=== PATIENT | female | born 1940 | race Caucasian/White ===

== ENCOUNTER 2019-07-13 20:19 | Emergency (ER) | payer MEDICARE, OTHER ==
[2019-07-13] MEDS ORDERED: Sodium Chloride 0.9% 1000 ML 1,000 ML IV STA (21:08)
[2019-07-13] MEDS ORDERED: MORPHINE SULFATE 2 MG INJ IV ONE (21:08)
[2019-07-13] MEDS ORDERED: Zofran 4 MG/2 ML VIAL IV ONE (21:08)
--- NOTE | 2019-07-13 21:40 | ERPHSYRPT ---
- History of Present Illness Time Seen by Provider: 07/13/19 21:15 Historian: patient Exam Limitations: no limitations Patient Subjective Stated Complaint: pt to ER with complaints of abdominal pain x 3 weeks. pt states + nauea. pt with some upper epigastric pain. Triage Nursing Assessment: pt A&Ox4. pt a little [place]-SPARKS. pt ambulatory. pt skin pwd. Physician History: Patient is a 79-year-old female with a history of lymphoma presents to our ED with complaints of abdominal pain. Abdominal pain has been present for approximately 3 weeks. Patient has been mildly constipated however she gave herself an enema today and produced some stool. This provided some relief. No associated trauma. No nausea or vomiting. Symptoms are mild to moderate intensity. No specific worsening or improving factors. Patient voices no other complaints at this time. Timing/Duration: week(s) (3 weeks) Activities at Onset: none Quality: aching Abdominal Pain Onset Location: periumbilical Pain Radiation: no radiation Severity of Pain-Max: moderate Severity of Pain-Current: moderate Modifying Factors: Improves With: nothing Associated Symptoms: denies symptoms Previous symptoms: no prior history Allergies/Adverse Reactions: latex Allergy (Verified 07/13/19 21:10) Home Medications: Omeprazole 20 MG [Prilosec 20 mg] 20 mg PO DAILY 01/18/15 [History] Aspirin [Aspirin EC] 81 mg PO DAILY 03/26/15 [History] Carvedilol 12.5 mg [Coreg 12.5 mg] 25 mg PO BID 03/26/15 [History] Amlodipine Besylate 5 mg [Norvasc 5 mg] 2.5 mg PO DAILY 07/13/19 [History] Pioglitazone 30 mg [Actos 30 MG] 30 mg PO DAILY 07/13/19 [History] Pioglitazone 30 mg [Actos 30 MG] 30 mg PO DAILY 07/13/19 [History] Sacubitril/Valsartan [Entresto 49 mg-51 mg Tablet] 1 tab PO DAILY 07/13/19 [ History] Sertraline HCl [Zoloft] 25 mg PO DAILY 07/13/19 [History] glipiZIDE [Glipizide] 10 mg PO DAILY 07/13/19 [History] Hx Tetanus, Diphtheria Vaccination/Date Given: Yes Hx Influenza Vaccination/Date Given: Yes Hx Pneumococcal Vaccination/Date Given: Yes Immunizations Up to Date: Yes Travel Risk - International Travel Have you traveled outside of the country in past 3 weeks: No Have you or anyone close to you been diagnosed with or: No Do your reside in a community with a known COVID-19 case?: Yes If Yes where:: [place] - Coronavirus Screening Has patient experienced Coronavirus symptoms: No - Review of Systems Constitutional: No Symptoms, No Fever, No Chills Eyes: No Symptoms Ears, Nose, & Throat: No Symptoms Respiratory: No Symptoms, No Cough, No Dyspnea Cardiac: No Symptoms, No Chest Pain, No Edema, No Syncope Abdominal/Gastrointestinal: Abdominal Pain, Constipation, No Nausea, No Vomiting , No Diarrhea Genitourinary Symptoms: No Symptoms, No Dysuria Musculoskeletal: No Symptoms, No Back Pain, No Neck Pain Skin: No Symptoms, No Rash Neurological: No Symptoms, No Dizziness, No Focal Weakness, No Sensory Changes Psychological: No Symptoms Endocrine: No Symptoms Immunological/Allergic: No Symptoms All Other Systems: Reviewed and Negative - Past Medical History Pertinent Past Medical History: Yes Neurological History: No Pertinent History ENT History: No Pertinent History Cardiac History: High Cholesterol, Hypertension Respiratory History: Other Endocrine Medical History: No Pertinent History Musculoskeletal History: Arthritis GI Medical History: GERD, Hernia History: No Pertinent History Psycho-Social History: Anxiety Female Reproductive Disorders: No Pertinent History Other Medical History: hiatal hernia, non hodgkins lymphoma, wears o2 at night. benign hypertensive heart disease. cardiomyopathy. malignant neoplasm lymphoma - Past Surgical History Past Surgical History: Yes Neuro Surgical History: No Pertinent History Cardiac: Cardiac Catheterization Respiratory: No Pertinent History Gastrointestinal: Cholecystectomy Genitourinary: No Pertinent History Musculoskeletal: No Pertinent History Female Surgical History: Tubal Ligation, Other Other Surgical History: breast reduction - Social History Smoking Status: Never smoker Exposure to second hand smoke: No Drug Use: none Patient Lives Alone: No - Nursing Vital Signs Nursing Vital Signs: Initial Vital Signs Temperature 98.3 F 07/13/19 21:01 Pulse Rate 77 07/13/19 21:01 Respiratory Rate 18 07/13/19 21:01 Blood Pressure 178/92 07/13/19 21:01 O2 Sat by Pulse Oximetry 98 07/13/19 21:01 Pain Scale Pain Intensity 3 - Physical Exam General Appearance: no apparent distress, alert Eye Exam: PERRL/EOMI, eyes nml inspection Ears, Nose, Throat Exam: normal ENT inspection, pharynx normal, moist mucous membranes Neck Exam: normal inspection, non-tender, supple, full range of motion Respiratory Exam: normal breath sounds, lungs clear, No respiratory distress Cardiovascular Exam: regular rate/rhythm, normal heart sounds Gastrointestinal/Abdomen Exam: soft, tenderness, distention, No mass, No pulsatile mass, No rebound Back Exam: normal inspection, normal range of motion, No CVA tenderness, No vertebral tenderness Extremity Exam: normal inspection, normal range of motion, pelvis stable Neurologic Exam: alert, oriented x 3, cooperative, normal mood/affect, nml cerebellar function, sensation nml, No motor deficits Skin Exam: normal color, warm, dry SpO2 Interpretation: normal SpO2: 98 O2 Delivery: Room Air - Course Nursing assessment & vital signs reviewed: Yes EKG Interpreted by Me: RATE, Other (EKG reveals a ventricular paced rhythm.) - CT Exams Abdomen/Pelvis CT Interpretation: Tele-radiologist Report (Colonic diverticulosis, pancreatic lesion, pancreatic cyst,) Ordered Tests: Active Orders 24 hr Category Date Time Status IV Insertion STAT Care 07/13/19 21:08 Active ABDOMEN AND PELVIS W CONTRAST [CT] Stat Exams 07/13/19 21:08 Taken CBC W DIFF Stat Lab 07/13/19 20:40 Completed CMP Stat Lab 07/13/19 20:40 Completed LIPASE Stat Lab 07/13/19 20:40 Completed TROPONIN Q3H Lab 07/13/19 20:40 Completed TROPONIN Q3H Lab 07/14/19 01:05 Completed TROPONIN Q3H Lab 07/14/19 03:15 Ordered TROPONIN Q3H Lab 07/14/19 06:15 Ordered TROPONIN Q3H Lab 07/14/19 09:15 Ordered UA W/RFX UR CULTURE Stat Lab 07/13/19 22:30 Completed Medication Summary Discontinued Medications Generic Name Dose Route Start Last Admin Trade Name Freq PRN Reason Stop Dose Admin Al Hydrox/Mg Hydrox/Simethicone Confirm 07/14/19 01:57 Maalox Es 30 Ml Unit Dose Administered 07/14/19 01:58 Dose 30 ml .ROUTE .STK-MED ONE Sodium Chloride 1,000 mls @ 999 mls/hr 07/13/19 21:08 07/13/19 21:50 Sodium Chloride 0.9% 1000 Ml IV 07/13/19 22:08 999 mls/hr .Q1H1M STA Administration Sodium Chloride Confirm 07/13/19 21:47 Sodium Chloride 0.9% 1000 Ml Administered 07/13/19 21:48 Dose 1,000 mls @ ud .ROUTE .STK-MED ONE Lidocaine HCl Confirm 07/14/19 01:57 Xylocaine Hcl Viscous * Administered 07/14/19 01:58 Dose 15 ml .ROUTE .STK-MED ONE Magnesium Hydroxide 45 ml 07/14/19 01:49 07/14/19 01:59 Gi Cocktail 45 Ml (Maalox/Lidocaine) PO 07/14/19 01:50 45 ml STAT ONE Administration Morphine Sulfate 2 mg 07/13/19 21:08 07/13/19 21:50 Morphine Sulfate 2 Mg Inj IV 07/13/19 21:09 2 mg STAT ONE Administration Morphine Sulfate Confirm 07/13/19 21:47 Morphine Sulfate 2 Mg Inj Administered 07/13/19 21:48 Dose 2 mg .ROUTE .STK-MED ONE Ondansetron HCl 4 mg 07/13/19 21:08 07/13/19 21:50 Zofran 4 Mg/2 Ml Vial IV 07/13/19 21:09 4 mg STAT ONE Administration Ondansetron HCl Confirm 07/13/19 21:47 Zofran 4 Mg/2 Ml Vial Administered 07/13/19 21:48 Dose 4 mg .ROUTE .STK-MED ONE Lab/Rad Data: Laboratory Result Diagrams 07/13/19 20:40 07/13/19 20:40 Laboratory Results 07/14/19 07/13/19 07/13/19 Range/Units 01:05 22:30 20:40 WBC (4.0-10.5) K/mm3 RBC (4.1-5.4) M/mm3 Hgb (12.0-16.0) gm/dl Hct (35-47) % MCV (78-100) fl MCH (26-32) pg MCHC (32-36) g/dl RDW (11.5-14.0) % Plt Count (150-450) K/mm3 MPV (7.5-11.0) fl Gran % (36.0-66.0) % Eos # (Auto) (0-0.5) Absolute Lymphs (auto) (1.0-4.6) Absolute Monos (auto) (0.0-1.3) Lymphocytes % (24.0-44.0) % Monocytes % (0.0-12.0) % Eosinophils % (0.00-5.0) % Basophils % (0.0-0.4) % Absolute Granulocytes (1.4-6.9) Basophils # (0-0.4) Sodium (137-145) mmol/L Potassium (3.5-5.1) mmol/L Chloride (98-107) mmol/L Carbon Dioxide (22-30) mmol/L Anion Gap (5-15) MEQ/L BUN (7-17) mg/dL Creatinine (0.52-1.04) mg/dL Estimated GFR ML/MIN Glucose (74-106) mg/dL Calcium (8.4-10.2) mg/dL Total Bilirubin (0.2-1.3) mg/dL AST (14-36) U/L ALT (0-35) U/L Alkaline Phosphatase (38-126) U/L Troponin I < 0.012 < 0.012 (0.000-0.034) ng/mL Serum Total Protein (6.3-8.2) g/dL Albumin (3.5-5.0) g/dL Lipase (23-300) U/L Urine Color STRAW (YELLOW) Urine Appearance CLEAR (CLEAR) Urine pH 6.0 (5-6) Ur Specific [place] 1.008 (1.005-1.025) Urine Protein NEGATIVE (Negative) Urine Ketones NEGATIVE (NEGATIVE) Urine Blood NEGATIVE (0-5) Johnathan/ul Urine Nitrite NEGATIVE (NEGATIVE) Urine Bilirubin NEGATIVE (NEGATIVE) Urine Urobilinogen NEGATIVE (0-1) mg/dL Ur Leukocyte Esterase NEGATIVE (NEGATIVE) Urine WBC (Auto) 3-5 (0-5) /HPF U Epithel Cells (Auto) RARE (FEW) /HPF Urine Bacteria (Auto) RARE (NEGATIVE) /HPF Urine Culture Reflexed NO (NO) Urine Glucose NEGATIVE (NEGATIVE) mg/dL 07/13/19 07/13/19 Range/Units 20:40 20:40 WBC 3.9 L (4.0-10.5) K/mm3 RBC 3.41 L (4.1-5.4) M/mm3 Hgb 10.0 L (12.0-16.0) gm/dl Hct 30.4 L (35-47) % MCV 89.1 (78-100) fl MCH 29.3 (26-32) pg MCHC 32.9 (32-36) g/dl RDW 13.9 (11.5-14.0) % Plt Count 80 L (150-450) K/mm3 MPV 10.3 (7.5-11.0) fl Gran % 65.2 (36.0-66.0) % Eos # (Auto) 0.06 (0-0.5) Absolute Lymphs (auto) 0.87 L (1.0-4.6) Absolute Monos (auto) 0.40 (0.0-1.3) Lymphocytes % 22.5 L (24.0-44.0) % Monocytes % 10.4 (0.0-12.0) % Eosinophils % 1.6 (0.00-5.0) % Basophils % 0.3 (0.0-0.4) % Absolute Granulocytes 2.52 (1.4-6.9) Basophils # 0.01 (0-0.4) Sodium 137 (137-145) mmol/L Potassium 4.0 (3.5-5.1) mmol/L Chloride 102 (98-107) mmol/L Carbon Dioxide 26 (22-30) mmol/L Anion Gap 12.7 (5-15) MEQ/L BUN 24 H (7-17) mg/dL Creatinine 1.24 H (0.52-1.04) mg/dL Estimated GFR 44.2 ML/MIN Glucose 110 H (74-106) mg/dL Calcium 9.8 (8.4-10.2) mg/dL Total Bilirubin 0.50 (0.2-1.3) mg/dL AST 25 (14-36) U/L ALT 17 (0-35) U/L Alkaline Phosphatase 52 (38-126) U/L Troponin I (0.000-0.034) ng/mL Serum Total Protein 7.1 (6.3-8.2) g/dL Albumin 4.2 (3.5-5.0) g/dL Lipase 108 (23-300) U/L Urine Color (YELLOW) Urine Appearance (CLEAR) Urine pH (5-6) Ur Specific [place] (1.005-1.025) Urine Protein (Negative) Urine Ketones (NEGATIVE) Urine Blood (0-5) Johnathan/ul Urine Nitrite (NEGATIVE) Urine Bilirubin (NEGATIVE) Urine Urobilinogen (0-1) mg/dL Ur Leukocyte Esterase (NEGATIVE) Urine WBC (Auto) (0-5) /HPF U Epithel Cells (Auto) (FEW) /HPF Urine Bacteria (Auto) (NEGATIVE) /HPF Urine Culture Reflexed (NO) Urine Glucose (NEGATIVE) mg/dL - Progress Progress: improved Progress Note: 07/14/19 01:15 Patient reassessed. No active abdominal pain. Case discussed with patient's oncologist Dr. Vaz who has no objections to patient's discharge. Patient tolerated p.o. CT abdomen pelvis negative for acute pathology. 07/14/19 04:21 Plan of care discussed with patient. She agrees to transfer for further evaluation and treatment. Discussed with Dr. Polo who accepts transfer. Case discussed with Dr. Bustillos who accepts consultation for GI. Discussed with Dr.: Taty (We will transfer patient to facility with gastroenterology.) Counseled pt/family regarding: lab results, diagnosis, rad results - Departure Departure Disposition: Home, Transfer Clinical Impression: Pancreatic lesion, Pancreatic cyst, Diverticulosis, Uterine fibroid, Anterolisthesis, Lesion of vertebra, Leukopenia, Thrombocytopenia Condition: Stable Critical Care Time: No Referrals: WON ABBASI [Primary Care Provider] - Additional Instructions: Discharge/Care Plan ARLENE SANTOS was seen on 07/14/19 in the Emergency Room. The patient was counseled regarding Diagnosis,Lab results, Imaging studies, need for follow up and when to return to the Emergency Room. Prescriptions given: Discharge Note I have spoken with the patient and/or caregivers. I have explained the patient' s condition, diagnosis and treatment plan based on the information available to me at this time. I have answered the patient's and/or caregiver's questions and addressed any concerns. The patient and/or caregivers have as good understanding of the patient's diagnosis, condition and treatment plan as can be expected at this point. The vital signs have been stable. The patient's condition is stable and appropriate for discharge from the emergency department. The patient will pursue further outpatient evaluation with the primary care physician or other designated or consulting physician as outlined in the discharge instructions. The patient and/or caregivers are agreeable to this plan of care and follow-up instructions have been explained in detail. The patient and/or caregivers have received these instruction. The patient/and or caregivers are aware that any significant change in condition or worsening of symptoms should prompt an immediate return to this or the closest emergency department or call 911.
[2019-07-13 21:46] LABS: Absolute Neutrophil Ct (ANC) 2.52 (1.4-6.9); BASOPHIL % 0.3 % (0.0-0.4); Basophil (Absolute #) 0.01 (0-0.4); Eosinophil % 1.6 % (0.00-5.0); Eosinophil (Absolute #) 0.06 (0-0.5); Hematocrit 30.4 % (35-47); Lymphocyte (Absolute #) 0.87 (1.0-4.6); Lymphocytes % 22.5 % (24.0-44.0); Mean Cell Volume 89.1 fl (78-100); Mean Corpuscular Hemoglobin 29.3 pg (26-32); Mean Corpuscular Hgb Concent. 32.9 g/dl (32-36); Mean Platelet Volume 10.3 fl (7.5-11.0); Monocytes % 10.4 % (0.0-12.0); Neutrophil % 65.2 % (36.0-66.0); Platelet Count 80 K/mm3 (150-450); Red Blood Count 3.41 M/mm3 (4.1-5.4); Red Cell Distribution Width 13.9 % (11.5-14.0); White Blood Count 3.9 K/mm3 (4.0-10.5)
[2019-07-13] MEDS ORDERED: Sodium Chloride 0.9% 1000 ML 1,000 ML ONE (21:47)
[2019-07-13] MEDS ORDERED: MORPHINE SULFATE 2 MG INJ ONE (21:47)
[2019-07-13] MEDS ORDERED: Zofran 4 MG/2 ML VIAL ONE (21:47)
[2019-07-13 22:02] LABS: ALBUMIN 4.2 g/dL (3.5-5.0); ANION GAP 12.7 MEQ/L (5-15); BILIRUBIN,TOTAL 0.5 mg/dL (0.2-1.3); Calcium 9.8 mg/dL (8.4-10.2); Creatinine 1 1.24 mg/dL (0.52-1.04); Total Protein 7.1 g/dL (6.3-8.2)
[2019-07-13 22:59] LABS: Appearance CLEAR (CLEAR); Bacteria RARE /HPF (NEGATIVE); Bilirubin NEGATIVE (NEGATIVE); Blood NEGATIVE Ery/ul (0-5); Epithelial Cells RARE /HPF (FEW); Glucose NEGATIVE (NEGATIVE); Ketones NEGATIVE (NEGATIVE); Leukocyte Esterase NEGATIVE (NEGATIVE); Nitrite NEGATIVE (NEGATIVE); Protein,Urine Dip NEGATIVE (Negative); Specific Gravity 1.008 (1.005-1.025); Urobilinogen NEGATIVE mg/dL (0-1)
[2019-07-14] MEDS ORDERED: GI COCKTAIL 45 ML (Maalox/Lidocaine) PO ONE (01:49)
[2019-07-14] MEDS ORDERED: XYLOCAINE HCl Viscous ONE (01:57)
[2019-07-14] MEDS ORDERED: MAALOX ES 30 ML UNIT DOSE ONE (01:57)
[2019-07-14 04:04] VITALS: BP 190/96; PULSE 80
[2019-07-14 04:21] VITALS: O2SAT 98
[2019-07-14 04:45] LABS: Slide Review 1 YES
--- NOTE | 2019-07-14 09:24 | XRAY ---
Indication: Epigastric and periumbilical pain 3 weeks. Nausea. Multiple contiguous axial images obtained through the abdomen and pelvis without contrast as ordered. Comparison: Noncontrast exam December 08, 2018. Lung bases remain clear. Heart is not enlarged. Noncontrasted stomach and bowel loops remain nonobstructed. Normal appendix. There is now mild diffuse scattered colonic fecal debris. Stable sigmoid diverticulosis without diverticulitis and cholecystectomy. Body and tail of the pancreas again demonstrates ductal prominence as seen on CT abdomen/pelvis with contrast on May 08, 2018 exam. No free fluid/air. Spleen is now enlarged measuring 13.5 cm in greatest dimension with left upper quadrant splenic varices. Remaining liver, pancreas, spleen, adrenal glands, kidneys, ureters, bladder, and uterus appear unremarkable for noncontrast exam. Stable mild aortoiliac calcifications without AAA. Osseous structures again demonstrates osteopenia, mild lumbar degenerative spondylosis, and minimal grade 1 L4 spondylolisthesis. No ventral or inguinal hernias. Impression: 1. New mild fecal stasis without obstruction. Stable sigmoid diverticulosis. 2. New splenomegaly with stable splenic varices. 3. Stable pancreatic duct prominence of uncertain etiology. Pancreatic mass not completely excluded. CT abdomen or MRI with contrast exam may yield further information. 3. Stable osteopenia, degenerative spondylosis, and grade 1 L4 spondylolisthesis. Comment: Preliminary interpretation was made by [facility]. No critical discrepancy.
== END 2019-07-14 04:57 | disposition short-term general hospital (02) ==
LOC: ED 20:19
DX: K86.2 Cyst of pancreas (principal); K57.90 Diverticulosis of intestine, part unspecified, without perforation or abscess without bleeding; D25.9 Leiomyoma of uterus, unspecified; M26.220 Open anterior occlusal relationship; M43.16 Spondylolisthesis, lumbar region; S34.119A Complete lesion of unspecified level of lumbar spinal cord, initial encounter; D72.819 Decreased white blood cell count, unspecified; D69.6 Thrombocytopenia, unspecified; Z79.899 Other long term (current) drug therapy; I10 Essential (primary) hypertension; E78.00 Pure hypercholesterolemia, unspecified; K21.9 Gastro-esophageal reflux disease without esophagitis; F41.9 Anxiety disorder, unspecified; Z85.72 Personal history of non-Hodgkin lymphomas
CPT/HCPCS: 36000; 36415; 74177; 80053; 81001; 83690; 84484; 85025; 93005; 96374; 96375; 99285; J2270; J2405; A9270-GY

== ENCOUNTER 2020-07-27 19:47 | Emergency (ER) | payer MEDICARE, OTHER ==
[2020-07-27 20:01] LABS: INR 1.04 (0.8-3.0); PROTIME 11.8 SECONDS (9.95-12.35)
[2020-07-27 20:05] LABS: ANION GAP 14.6 MEQ/L (5-15); BILIRUBIN,TOTAL 0.4 mg/dL (0.2-1.3); Calcium 8.7 mg/dL (8.4-10.2); Creatinine 1 1.13 mg/dL (0.52-1.04); EST GLOMERULAR FILTRATION RATE 49.1 ML/MIN; Potassium 3.7 mmol/L (3.5-5.1); Total Protein 6.3 g/dL (6.3-8.2)
[2020-07-27] MEDS ORDERED: TRANDATE 20 MG/4 ML SYRINGE IV ONE ×4 (20:07→20:43)
[2020-07-27 20:10] LABS: Absolute Neutrophil Ct (ANC) 3.76 (1.4-6.9); BASOPHIL % 0.2 % (0.0-0.4); Basophil (Absolute #) 0.01 (0-0.4); Eosinophil % 1.1 % (0.00-5.0); Eosinophil (Absolute #) 0.05 (0-0.5); Hematocrit 22.7 % (35-47); Hemoglobin 7.8 gm/dl (12.0-16.0); Mean Cell Volume 90.1 fl (78-100); Mean Corpuscular Hgb Concent. 34.4 g/dl (32-36); Mean Platelet Volume 11.3 fl (7.5-11.0); Monocytes % 4.5 % (0.0-12.0); Neutrophil % 85.2 % (36.0-66.0); Platelet Count 36 K/mm3 (150-450); Red Blood Count 2.52 M/mm3 (4.1-5.4); Red Cell Distribution Width 14.9 % (11.5-14.0); White Blood Count 4.4 K/mm3 (4.0-10.5)
[2020-07-27] MEDS ORDERED: Zofran 4 MG/2 ML VIAL IV ONE (20:22)
[2020-07-27] MEDS ORDERED: Zofran 4 MG/2 ML VIAL ONE (20:24)
[2020-07-27 20:28] VITALS: O2SAT 99
[2020-07-27 20:43] VITALS: BP 200/103; PULSE 70
[2020-07-27 21:15] LABS: Appearance CLEAR (CLEAR); Bilirubin NEGATIVE (NEGATIVE); Blood SMALL Ery/ul (0-5); Glucose >=500 mg/dL (NEGATIVE); Ketones NEGATIVE (NEGATIVE); Leukocyte Esterase SMALL (NEGATIVE); Nitrite NEGATIVE (NEGATIVE); Protein,Urine Dip 30 (Negative); RBC 0-2 /HPF (0-2); Specific Gravity 1.008 (1.005-1.025); Urobilinogen NEGATIVE mg/dL (0-1)
--- NOTE | 2020-07-27 21:58 | ERPHSYRPT ---
- History of Present Illness Source: family Exam Limitations: clinical condition Patient Subjective Stated Complaint: per pt's family, she fell from standing and hit the right side of her head. family was taking her to [facility] when she became unresponsive. Triage Nursing Assessment: pt responsive to voice. does not answer approp. p-t diaphoretice, skin warm. respirations nonlabored, o2 at 3l as per home. bruising noted around eyes, family states from fall last saturday. hematoma to rt temporal area. Physician History: 80 yo wf w h/o metastatic pancreatic ca presents w altered LOC after falling and hitting head on a door. Pt also has a h/o head injury due to a fall 1 week ago. Pt arrived minimally alert but with good airway and able to follow simple commands. Pt with good sats and hypertensive. She was rushed to CT where large L subdural hematoma was seen on CT scan. Discussed Ct results w family and DNR status was obtained. Family does wish neurosurgical intervention if it would help her. Spoke w Dr. Bonilla(Neurosurgeon) at [facility] in conjunction w Dr. Quach(trauma) who accepted pt. Pt also accepted by ER physician. Timing/Duration: today Severity: severe Baseline/Normal Cognition: poor alertness Current Cognition: poor alertness Associated Symptoms: confusion, nausea Allergies/Adverse Reactions: latex Allergy (Verified 07/27/20 20:31) Home Medications: Omeprazole 20 MG [Prilosec 20 mg] 20 mg PO DAILY 01/18/15 [History] Aspirin [Aspirin EC] 81 mg PO DAILY 03/26/15 [History] Carvedilol 12.5 mg [Coreg 12.5 mg] 25 mg PO BID 03/26/15 [History] Amlodipine Besylate 5 mg [Norvasc 5 mg] 2.5 mg PO DAILY 07/13/19 [History] Pioglitazone 30 mg [Actos 30 MG] 30 mg PO DAILY 07/13/19 [History] Pioglitazone 30 mg [Actos 30 MG] 30 mg PO DAILY 07/13/19 [History] Sacubitril/Valsartan [Entresto 49 mg-51 mg Tablet] 1 tab PO DAILY 07/13/19 [History] Sertraline HCl [Zoloft] 25 mg PO DAILY 07/13/19 [History] glipiZIDE [Glipizide] 10 mg PO DAILY 07/13/19 [History] Hx Tetanus, Diphtheria Vaccination/Date Given: Yes Hx Influenza Vaccination/Date Given: Yes Hx Pneumococcal Vaccination/Date Given: Yes Immunizations Up to Date: Yes Travel Risk - International Travel Have you traveled outside of the country in past 3 weeks: No - Coronavirus Screening Are you exhibiting any of the following symptoms?: No Close contact with a COVID-19 positive Pt in past 14-21 Days: No - Vaccine Status Have you recieved a Covid-19 vaccination: Yes 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 - Vaccination Dates Date of 2cond Vaccination (if applicable): july 2020 - Review of Systems All Other Systems: Unable due to condition - Past Medical History Pertinent Past Medical History: Yes Neurological History: No Pertinent History ENT History: No Pertinent History Cardiac History: High Cholesterol, Hypertension Respiratory History: Other Endocrine Medical History: No Pertinent History Musculoskeletal History: Arthritis GI Medical History: GERD, Hernia History: No Pertinent History Psycho-Social History: Anxiety Female Reproductive Disorders: No Pertinent History Other Medical History: hiatal hernia, non hodgkins lymphoma, wears o2 at night. benign hypertensive heart disease. cardiomyopathy. malignant neoplasm lymphoma. stage 4 pancreatic ca- currently recieving treatments - Past Surgical History Past Surgical History: Yes Neuro Surgical History: No Pertinent History Cardiac: Cardiac Catheterization Respiratory: No Pertinent History Gastrointestinal: Cholecystectomy Genitourinary: No Pertinent History Musculoskeletal: No Pertinent History Female Surgical History: Tubal Ligation, Other Other Surgical History: breast reduction, port placement - Social History Smoking Status: Former smoker Exposure to second hand smoke: No Drug Use: none Patient Lives Alone: No Significant Family History: no pertinent family hx - Nursing Vital Signs Nursing Vital Signs: Initial Vital Signs Pulse Rate 82 07/27/20 20:04 Respiratory Rate 16 07/27/20 20:04 Blood Pressure 197/107 07/27/20 20:04 O2 Sat by Pulse Oximetry 99 07/27/20 20:04 Pain Scale Pain Intensity 8 - Vasyl Coma Scale Best Eye Response ([place]): (3) open to voice Best Verbal Response (Vasyl): (4) confused conversation Best Motor Response ([place]): (5) localizes to pain [place] Total: 12 - Physical Exam General Appearance: lethargy Eye Exam: bilateral eye: normal inspection, PERRL, EOMI Ears, Nose, Throat Exam: normal ENT inspection, TMs normal, pharynx normal, moist mucous membranes Neck Exam: normal inspection, non-tender, supple, No meningismus, No mass, No Brudzinski, No Kernig's Respiratory: lungs clear, airway intact, No respiratory distress Cardiovascular: regular rate/rhythm, normal heart sounds, normal peripheral pulses, No murmur Gastrointestinal: soft, normal bowel sounds, No tenderness Back Exam: normal inspection Extremity Exam: normal inspection, pelvis stable Mental Status: lethargy, 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 Exam: PERRL, No facial droop, No facial paresthesias, No facial weakness Motor/Sensory: no motor deficit DTR: bicep (R): 2+, bicep (L): 2+ Skin Exam: warm, dry SpO2 Interpretation: normal SpO2: 99 O2 Delivery: Oxymizer - Course Nursing assessment & vital signs reviewed: Yes - CT Exams Head CT Interpretation: Discussed w/radiologist (Large L acute to subacute subdural hematome w 1.2cm midline shift) Ordered Tests: Active Orders 24 hr Category Date Time Status EKG-ER Only STAT Care 07/27/20 19:52 Completed IV Insertion STAT Care 07/27/20 20:09 Completed IV Insertion-2nd Peripheral STAT Care 07/27/20 20:41 Completed NPO (ED) STAT Care 07/27/20 19:50 Completed HEAD WITHOUT CONTRAST [CT] Stat Exams 07/27/20 19:48 Taken CBC W DIFF Stat Lab 07/27/20 19:50 Completed CMP Stat Lab 07/27/20 19:50 Completed CULTURE,URINE Stat Lab 07/27/20 20:30 Received Lactic Acid Stat Lab 07/27/20 19:50 Completed PROTIME WITH INR Stat Lab 07/27/20 19:50 Completed PTT Stat Lab 07/27/20 19:50 Completed TROPONIN Q3H Lab 07/27/20 19:50 Completed UA W/RFX UR CULTURE Stat Lab 07/27/20 20:04 Completed Medication Summary Discontinued Medications Generic Name Dose Route Start Last Admin Trade Name Freq PRN Reason Stop Dose Admin Labetalol HCl 10 mg 07/27/20 20:07 07/27/20 20:26 Trandate 20 Mg/4 Ml Syringe IV 07/27/20 20:08 10 mg STAT ONE Administration Labetalol HCl Confirm 07/27/20 20:24 Trandate 20 Mg/4 Ml Syringe Administered 07/27/20 20:25 Dose 20 mg IV .STK-MED ONE Labetalol HCl 20 mg 07/27/20 20:43 07/27/20 20:44 Trandate 20 Mg/4 Ml Syringe IV 07/27/20 20:44 20 mg STAT ONE Administration Labetalol HCl Confirm 07/27/20 20:43 Trandate 20 Mg/4 Ml Syringe Administered 07/27/20 20:44 Dose 20 mg IV .STK-MED ONE Ondansetron HCl 4 mg 07/27/20 20:22 07/27/20 20:26 Zofran 4 Mg/2 Ml Vial IV 07/27/20 20:23 4 mg STAT ONE Administration Ondansetron HCl Confirm 07/27/20 20:24 Zofran 4 Mg/2 Ml Vial Administered 07/27/20 20:25 Dose 4 mg .ROUTE .STK-MED ONE Lab/Rad Data: Laboratory Result Diagrams 07/27/20 19:50 07/27/20 19:50 Laboratory Results 07/27/20 07/27/20 07/27/20 Range/Units 20:04 19:50 19:50 WBC (4.0-10.5) K/mm3 RBC (4.1-5.4) M/mm3 Hgb (12.0-16.0) gm/dl Hct (35-47) % MCV (78-100) fl MCH (26-32) pg MCHC (32-36) g/dl RDW (11.5-14.0) % Plt Count (150-450) K/mm3 MPV (7.5-11.0) fl Gran % (36.0-66.0) % Eos # (Auto) (0-0.5) Absolute Lymphs (auto) (1.0-4.6) Absolute Monos (auto) (0.0-1.3) Lymphocytes % (24.0-44.0) % Monocytes % (0.0-12.0) % Eosinophils % (0.00-5.0) % Basophils % (0.0-0.4) % Absolute Granulocytes (1.4-6.9) Basophils # (0-0.4) PT 11.8 (9.95-12.35) SECONDS INR 1.04 (0.8-3.0) APTT 24.0 L (25.3-37.0) SECONDS Sodium (137-145) mmol/L Potassium (3.5-5.1) mmol/L Chloride (98-107) mmol/L Carbon Dioxide (22-30) mmol/L Anion Gap (5-15) MEQ/L BUN (7-17) mg/dL Creatinine (0.52-1.04) mg/dL Estimated GFR ML/MIN Glucose (74-106) mg/dL Lactic Acid (0.4-2.0) Calcium (8.4-10.2) mg/dL Total Bilirubin (0.2-1.3) mg/dL AST (14-36) U/L ALT (0-35) U/L Alkaline Phosphatase (38-126) U/L Troponin I < 0.012 (0.000-0.034) ng/mL Serum Total Protein (6.3-8.2) g/dL Albumin (3.5-5.0) g/dL Urine Color STRAW (YELLOW) Urine Appearance CLEAR (CLEAR) Urine pH 7.0 (5-6) Ur Specific [place] 1.008 (1.005-1.025) Urine Protein 30 (Negative) Urine Ketones NEGATIVE (NEGATIVE) Urine Blood SMALL (0-5) Johnathan/ul Urine Nitrite NEGATIVE (NEGATIVE) Urine Bilirubin NEGATIVE (NEGATIVE) Urine Urobilinogen NEGATIVE (0-1) mg/dL Ur Leukocyte Esterase SMALL (NEGATIVE) Urine WBC (Auto) 6-10 (0-5) /HPF Urine RBC (Auto) 0-2 (0-2) /HPF U Epithel Cells (Auto) NONE (FEW) /HPF Urine Bacteria (Auto) NONE (NEGATIVE) /HPF Urine Culture Reflexed ORDERED SEPARATELY (NO) Urine Glucose >=500 (NEGATIVE) mg/dL 07/27/20 07/27/20 07/27/20 Range/Units 19:50 19:50 19:50 WBC 4.4 (4.0-10.5) K/mm3 RBC 2.52 L (4.1-5.4) M/mm3 Hgb 7.8 L (12.0-16.0) gm/dl Hct 22.7 L (35-47) % MCV 90.1 (78-100) fl MCH 31.0 (26-32) pg MCHC 34.4 (32-36) g/dl RDW 14.9 H (11.5-14.0) % Plt Count 36 L (150-450) K/mm3 MPV 11.3 H (7.5-11.0) fl Gran % 85.2 H (36.0-66.0) % Eos # (Auto) 0.05 (0-0.5) Absolute Lymphs (auto) 0.40 L (1.0-4.6) Absolute Monos (auto) 0.20 (0.0-1.3) Lymphocytes % 9.0 L (24.0-44.0) % Monocytes % 4.5 (0.0-12.0) % Eosinophils % 1.1 (0.00-5.0) % Basophils % 0.2 (0.0-0.4) % Absolute Granulocytes 3.76 (1.4-6.9) Basophils # 0.01 (0-0.4) PT (9.95-12.35) SECONDS INR (0.8-3.0) APTT (25.3-37.0) SECONDS Sodium 133 L (137-145) mmol/L Potassium 3.7 (3.5-5.1) mmol/L Chloride 101 (98-107) mmol/L Carbon Dioxide 21 L (22-30) mmol/L Anion Gap 14.6 (5-15) MEQ/L BUN 21 H (7-17) mg/dL Creatinine 1.13 H (0.52-1.04) mg/dL Estimated GFR 49.1 ML/MIN Glucose 253 H (74-106) mg/dL Lactic Acid 1.3 (0.4-2.0) Calcium 8.7 (8.4-10.2) mg/dL Total Bilirubin 0.40 (0.2-1.3) mg/dL AST 34 (14-36) U/L ALT 21 (0-35) U/L Alkaline Phosphatase 87 (38-126) U/L Troponin I (0.000-0.034) ng/mL Serum Total Protein 6.3 (6.3-8.2) g/dL Albumin 4.0 (3.5-5.0) g/dL Urine Color (YELLOW) Urine Appearance (CLEAR) Urine pH (5-6) Ur Specific [place] (1.005-1.025) Urine Protein (Negative) Urine Ketones (NEGATIVE) Urine Blood (0-5) Johnathan/ul Urine Nitrite (NEGATIVE) Urine Bilirubin (NEGATIVE) Urine Urobilinogen (0-1) mg/dL Ur Leukocyte Esterase (NEGATIVE) Urine WBC (Auto) (0-5) /HPF Urine RBC (Auto) (0-2) /HPF U Epithel Cells (Auto) (FEW) /HPF Urine Bacteria (Auto) (NEGATIVE) /HPF Urine Culture Reflexed (NO) Urine Glucose (NEGATIVE) mg/dL - Progress Progress Note: 07/28/20 00:49 Pt in critical but stable condition when EMS assumed care. DNR order obtained per /family. Family OK w neurosurgical intervention to drain subdural. Counseled pt/family regarding: diagnosis, rad results - Departure Departure Disposition: Transfer Clinical Impression: Subdural hematoma Condition: Critical Critical Care Time: Yes Critical Care Time(excluding separately billable procedures): Critical 30-74 mins Referrals: WON ABBASI [Primary Care Provider] -
--- NOTE | 2020-07-28 09:02 | XRAY ---
Indication: Temporal head injury/swelling following fall. Multiple contiguous axial images obtained through the head without contrast. Comparison: May 08, 2018. New large acute to subacute appearing left temporoparietal subdural hematoma extending along the entire convexity and up to 1.5 cm in thickness. There is also mass effect with 1.2 cm midline shifting. Fourth ventricle is midline without hydrocephalus. Small high right parietal scalp hematoma. Bony calvarium intact. Visualized paranasal sinuses and mastoid air cells are clear. Impression: New large left temporoparietal acute to subacute subdural hematoma with mass effect/midline shifting. Small right parietal scalp hematoma. Comment: Immediate telephone report was given to ordering clinician, Dr. White at 2005 hrs. on July 27, 2020.
== END 2020-07-27 20:48 | disposition short-term general hospital (02) ==
LOC: ED 19:47
DX: S00.83XA Contusion of other part of head, initial encounter (principal); W18.39XA Other fall on same level, initial encounter; Y93.89 Activity, other specified; Y92.89 Other specified places as the place of occurrence of the external cause; R55 Syncope and collapse; R29.6 Repeated falls; Z79.899 Other long term (current) drug therapy; Z85.72 Personal history of non-Hodgkin lymphomas; Z99.81 Dependence on supplemental oxygen; C80.1 Malignant (primary) neoplasm, unspecified; C78.89 Secondary malignant neoplasm of other digestive organs
CPT/HCPCS: 36000; 36415; 51702; 70450; 80053; 81001; 83605; 84484; 85025; 85610; 85730; 87086; 93005; 96374; 96375; 96376; 99285; J2405